=== PATIENT | male | born 1960 | race Caucasian/White ===

== ENCOUNTER 2022-01-30 02:24 | Emergency (ER) | payer OTHER, MEDICAID ==
[~2022-01-30] VITALS: Ht 175.3 cm; Wt 59.0 kg
[2022-01-30 03:23] LABS: BASOPHILS % 0.8 % (0.0-2.0); EOSINOPHILS % 2.4 % (0.0-5.0); HEMATOCRIT. 33.9 % (42.0-52.0); HEMOGLOBIN. 11.1 g/dL (14.0-18.0); MEAN CORPUSCULAR HEMOGLOBIN 30.2 pg (28.0-32.0); MEAN CORPUSCULAR VOLUME 92.6 fL (80.0-94.0); MEAN PLATELET VOLUME 7.4 fl (7.4-10.4); MONOCYTES % 9.6 % (2.0-8.0); NEUTROPHILS % 68.2 % (40.0-76.0); PLATELET 113 x1000/uL (130-400); RED BLOOD CELL COUNT 3.67 mill/uL (4.7-6.1); RED CELL DISTRIBUTION WIDTH 19.1 % (11.6-14.6)
[2022-01-30 03:26] LABS: CHLORIDE 100 mEq/L (98-107)
[2022-01-30 03:51] LABS: ETHANOL BLOOD < 10 mg/dL
[2022-01-30] MEDS ORDERED: ASPIRIN 325MG EC TABLET PO ONE (05:00)
[2022-01-30] MEDS ORDERED: DEXTROSE 50% WATER 50ML SYRINGE IV ONE (05:00)
[2022-01-30 09:00] VITALS: BP 126/85
== END 2022-01-30 14:14 | disposition short-term general hospital (02) ==
LOC: ER 02:24
DX: E87.70 Fluid overload, unspecified (principal); R77.8 Other specified abnormalities of plasma proteins; R53.83 Other fatigue; R53.1 Weakness; Z20.822 Contact with and (suspected) exposure to COVID-19; R05.9 Cough, unspecified; E11.22 Type 2 diabetes mellitus with diabetic chronic kidney disease; N18.6 End stage renal disease; I44.7 Left bundle-branch block, unspecified; Z99.2 Dependence on renal dialysis
CPT/HCPCS: 36415; 71045; 80053; 80320; 82962; 83880; 84484; 85025; 87426; 93005; 96374; 99291; C9803; G0480

== ENCOUNTER 2022-02-19 18:42 | Inpatient (IN) | payer OTHER, MEDICAID ==
[~2022-02-19] VITALS: Ht 170.2 cm; Wt 75.7 kg
[~2022-02-19 18:42] MED LIST: ETOMIDATE 2MG/ML 10ML VIAL IV ONE; SODIUM CHLORIDE 0.9% 10ML VIAL ONE; VECURONIUM BROMIDE 10 MG/VIAL IV ONE
[2022-02-19] MEDS ORDERED: SODIUM CHLORIDE 0.9% 1,000 ML IV ONE (19:00)
[2022-02-19 19:51] LABS: CHLORIDE 97 mEq/L (98-107)
[2022-02-19 20:05] LABS: HEMOGLOBIN. 8.9 g/dL (14.0-18.0); MEAN CORPUSCULAR HEMOGLOBIN 30.5 pg (28.0-32.0); MEAN CORPUSCULAR VOLUME 96.5 fL (80.0-94.0); PLATELET 293 x1000/uL (130-400); RED BLOOD CELL COUNT 2.91 mill/uL (4.7-6.1); RED CELL DISTRIBUTION WIDTH 19.2 % (11.6-14.6)
[2022-02-19] MEDS ORDERED: MIDAZOLAM HCL 2 MG/2 ML VIAL IM ONE (20:15)
[2022-02-19] MEDS ORDERED: SODIUM BICARBONATE 8.4% 1 MEQ/ML 50ML SYR IV ONE (20:15)
[2022-02-19] MEDS ORDERED: CALCIUM GLUCONATE 100MG/ML 10ML VIAL IV ONE (20:15)
[2022-02-19] MEDS ORDERED: ALBUTEROL (0.083%) 2.5MG/3ML NEB HHN ONE (20:15)
[2022-02-19] MEDS ORDERED: PIPERACILLIN/TAZ 3.375G PREMIX 50 ML IV ONE (20:15)
[2022-02-19] MEDS ORDERED: VANCOMYCIN 1G PREMIX 200 ML IV ONE (20:15)
[2022-02-19 21:29] LABS: CLARITY URINE CLEAR (CLEAR); COLOR URINE DARK YELLOW (YELLOW); KETONES URINE TRACE (NEGATIVE); LEUKOCYTE ESTERASE URINE TRACE (NEGATIVE); NITRITE URINE NEGATIVE (NEGATIVE); OCCULT BLOOD URINE TRACE (NEGATIVE); PROTEIN URINE 3+ (NEGATIVE); SPECIFIC GRAVITY URINE 1.017 (1.005-1.030)
[2022-02-19 21:48] LABS: PLATELET ESTIMATE NORMAL
[2022-02-19] MEDS ORDERED: DEXTROSE 50% WATER 50ML SYRINGE IV ONE (22:44)
[2022-02-19] MEDS ORDERED: DEXTROSE 50% WATER 50ML SYRINGE IV NR (23:00)
[2022-02-19] MEDS ORDERED: LORAZEPAM 2MG/ML CPJ IV PRN (23:00)
[2022-02-19] MEDS ORDERED: PROPOFOL 10MG/ML 100ML 100 ML IV STA (23:38)
[2022-02-20] VITALS (41 sets, daily range): BP systolic 80–156; BP diastolic 42–95
[2022-02-20 01:38] LABS: BG CARBOXYHEMOGLOBIN 0.8 % (0.5-1.5); BG DEOXYHEMOGLOBIN 7.7 % (0.0-5.0); BG FRACTION INSPIRED OXYGEN 40; BG HCO3 ACT 21.6 mmol/L (22.0-26.0); BG METHEMOGLOBIN 0.3 % (0.0-1.5); BG OXYGEN SATURATION 92.2 % (92.0-98.5); BG OXYHEMOGLOBIN 91.2 % (94.0-97.0); BG PCO2 31.8 mmHg (35.0-45.0); BG PH 7.449 (7.350-7.450); BG PO2 65.5 mmHg (75.0-100.0); BG SAMPLE SITE LEFT BRACHIAL; BG TOTAL HEMOGLOBIN 8.9 g/dL (12.0-18.0); BG VENT MODE VENT - AC
[2022-02-20] MEDS ORDERED: DEXTROSE 10% WATER 1000ML IV ONE (03:00)
[2022-02-20] MEDS ORDERED: PROPOFOL 10 MG/ML 100 ML IV ONE (03:00)
[2022-02-20] MEDS ORDERED: DEXTROSE 50% WATER 50ML SYRINGE IV NR (03:00)
[2022-02-20] MEDS ORDERED: NOREPINEPHRINE 8MG/250ML PMX 250ML IV PRN (03:00)
[2022-02-20] MEDS ORDERED: ACETAMINOPHEN 325MG TABLET PO PRN (08:15)
[2022-02-20] MEDS ORDERED: ONDANSETRON HCL 4MG/2ML INJ IV PRN (08:15)
[2022-02-20] MEDS ORDERED: PHENYLEPHRINE 50 MG in DEXT 5% WATER 245 ML IV PRN (09:00)
[2022-02-20] MEDS: PROPOFOL 10MG/ML 100ML 100 ML IV SCH ×2 (09:08→13:25)
[2022-02-20] MEDS ORDERED: DEXTROSE 10% WATER 500 ML IV ONE (10:00)
[2022-02-20] MEDS: PIPERACILLIN/TAZOBACTAM 3.375 G in DEXTROSE 5% WATER 50 ML IV SCH ×2 (11:03→21:54)
[2022-02-20] MEDS: MIDODRINE HCL 5MG TABLET PO SCH ×3 (11:27→17:32)
[2022-02-20] MEDS: PANTOPRAZOLE SODIUM 40 MG/VIAL IV SCH (11:27)
[2022-02-20] MEDS ORDERED: PROPOFOL 10MG/ML 100ML 100 ML IV PRN (12:15)
[2022-02-20] MEDS ORDERED: IPRATROPIUM/ALBUTEROL 0.5-3(2.5)MG/3ML NEB HHN PRN (12:15)
[2022-02-20] MEDS ORDERED: DEXT 10% WATER 1,000 ML IV SCH (12:45)
[2022-02-20] MEDS ORDERED: NOREPINEPHRINE 8MG/250ML PMX 250 ML IV PRN (12:45)
[2022-02-20] MEDS ORDERED: NOREPINEPHRINE 8 MG in DEXTROSE 5% WATER 250 ML IV PRN (13:00)
[2022-02-20 13:07] LABS: INR 1.3
[2022-02-20] MEDS ORDERED: DEXTROSE 50% WATER 50ML SYRINGE IV PRN (13:15)
[2022-02-20] MEDS: ENOXAPARIN 80MG/0.8ML SYR SUBCUT SCH (13:29)
[2022-02-20] MEDS ORDERED: VANCOMYCIN 500MG PREMIX 100 ML IV NR (14:30)
[2022-02-20] MEDS: IPRATROPIUM/ALBUTEROL 0.5-3(2.5)MG/3ML NEB HHN SCH ×2 (14:54→20:29)
[2022-02-20] MEDS ORDERED: HYDR2TAB4 PO (15:01)
[2022-02-20] MEDS ORDERED: GLIP5TAB12 PO (15:01)
[2022-02-20] MEDS ORDERED: MIRT-118 MT (15:01)
[2022-02-20] MEDS ORDERED: CEPH500T PO (15:01)
[2022-02-20] MEDS ORDERED: DOCU250C19 MT (15:01)
[2022-02-20] MEDS ORDERED: SENN-178 MT (15:01)
[2022-02-20] MEDS ORDERED: GABA-529 MT (15:01)
[2022-02-20] MEDS ORDERED: APIX5TAB MT (15:01)
[2022-02-20] MEDS: BLOOD SUGAR DIAGNOSTIC STRIP TEST SCH ×2 (16:00→20:00)
[2022-02-21] VITALS (54 sets, daily range): BP systolic 89–122; BP diastolic 57–96
[2022-02-21] MEDS: BLOOD SUGAR DIAGNOSTIC STRIP TEST SCH ×4 (00:38→12:00)
[2022-02-21] MEDS: IPRATROPIUM/ALBUTEROL 0.5-3(2.5)MG/3ML NEB HHN SCH ×2 (01:48→13:56)
[2022-02-21 05:20] LABS: HEMATOCRIT. 25.8 % (42.0-52.0); HEMOGLOBIN. 8.4 g/dL (14.0-18.0); MEAN CORPUSCULAR HEMOGLOBIN 30.7 pg (28.0-32.0); MEAN PLATELET VOLUME 7.5 fl (7.4-10.4); PLATELET 265 x1000/uL (130-400); RED BLOOD CELL COUNT 2.72 mill/uL (4.7-6.1); RED CELL DISTRIBUTION WIDTH 21.8 % (11.6-14.6)
[2022-02-21 08:07] LABS: BG BASE EXCESS -1.5 mmol/L (-2.0-2.0); BG CARBOXYHEMOGLOBIN 0.3 % (0.5-1.5); BG DEOXYHEMOGLOBIN 1.7 % (0.0-5.0); BG FRACTION INSPIRED OXYGEN 35; BG HCO3 ACT 21.5 mmol/L (22.0-26.0); BG METHEMOGLOBIN 0.3 % (0.0-1.5); BG OXYGEN SATURATION 98.3 % (92.0-98.5); BG OXYHEMOGLOBIN 97.7 % (94.0-97.0); BG PCO2 29.6 mmHg (35.0-45.0); BG PH 7.478 (7.350-7.450); BG PO2 110.9 mmHg (75.0-100.0); BG SAMPLE SITE RIGHT BRACHIAL; BG TOTAL HEMOGLOBIN 8.9 g/dL (12.0-18.0); BG VENT MODE VENT - AC
[2022-02-21] MEDS ORDERED: DEXT 5%/0.9% NACL 1,000 ML IV SCH (09:45)
[2022-02-21] MEDS: PANTOPRAZOLE SODIUM 40 MG/VIAL IV SCH (10:17)
[2022-02-21] MEDS: MIDODRINE HCL 5MG TABLET PO SCH ×3 (10:18→16:58)
[2022-02-21] MEDS: PIPERACILLIN/TAZOBACTAM 3.375 G in DEXTROSE 5% WATER 50 ML IV SCH (12:08)
[2022-02-21] MEDS: PROPOFOL 10MG/ML 100ML 100 ML IV SCH (12:10)
[2022-02-21] MEDS: ENOXAPARIN 80MG/0.8ML SYR SUBCUT SCH (12:35)
[2022-02-21 13:46] LABS: HEPATITIS B SURFACE ANTIGEN NEGATIVE
[2022-02-21 16:40] LABS: PLATELET ESTIMATE NORMAL
[2022-02-21] MEDS ORDERED: VANCOMYCIN 500MG PREMIX 100 ML IV NR (21:00)
[2022-02-21] MEDS ORDERED: EPOETIN ALFA 10000UNITS/ML VIAL SUBCUT SCH (21:00)
== END 2022-02-21 19:43 | disposition short-term general hospital (02) | DRG 871 ==
LOC: ER 18:42 → MICUSO 21:03 → EDBEDREQ 21:18 → EDBEDREQTM 21:18 → CVICU 02-20 08:27
PROVIDERS: ADMIT Internal Medicine; ATTEND Internal Medicine
PROC: 0BH17EZ Insertion of Endotracheal Airway into Trachea, Via Natural or Artificial Opening (ICD-10-PCS; principal; 2022-02-19)
PROC: 5A1945Z Respiratory Ventilation, 24-96 Consecutive Hours (ICD-10-PCS; 2022-02-19)
PROC: 06HY33Z Insertion of Infusion Device into Lower Vein, Percutaneous Approach (ICD-10-PCS; 2022-02-19)
PROC: B54BZZA Ultrasonography of Right Lower Extremity Veins, Guidance (ICD-10-PCS; 2022-02-19)
PROC: 5A1D70Z Performance of Urinary Filtration, Intermittent, Less than 6 Hours Per Day (ICD-10-PCS; 2022-02-21)
DX: A41.9 Sepsis, unspecified organism (principal); E43 Unspecified severe protein-calorie malnutrition; G92.8 Other toxic encephalopathy; N18.6 End stage renal disease; R65.21 Severe sepsis with septic shock; J18.9 Pneumonia, unspecified organism; J96.01 Acute respiratory failure with hypoxia; I21.4 Non-ST elevation (NSTEMI) myocardial infarction; E87.1 Hypo-osmolality and hyponatremia; I48.92 Unspecified atrial flutter; I12.0 Hypertensive chronic kidney disease with stage 5 chronic kidney disease or end stage renal disease; D64.9 Anemia, unspecified; E87.5 Hyperkalemia; E87.8 Other disorders of electrolyte and fluid balance, not elsewhere classified; E11.649 Type 2 diabetes mellitus with hypoglycemia without coma; E11.51 Type 2 diabetes mellitus with diabetic peripheral angiopathy without gangrene; E11.22 Type 2 diabetes mellitus with diabetic chronic kidney disease; E78.5 Hyperlipidemia, unspecified; L89.156 Pressure-induced deep tissue damage of sacral region; I25.10 Atherosclerotic heart disease of native coronary artery without angina pectoris; Z20.822 Contact with and (suspected) exposure to COVID-19; Y95 Nosocomial condition; I48.91 Unspecified atrial fibrillation; Z99.2 Dependence on renal dialysis; Z95.1 Presence of aortocoronary bypass graft; Z89.511 Acquired absence of right leg below knee; Z82.49 Family history of ischemic heart disease and other diseases of the circulatory system; Z83.3 Family history of diabetes mellitus; Z78.1 Physical restraint status; Z68.26 Body mass index [BMI] 26.0-26.9, adult
CPT/HCPCS: 36415; 36600; 71045; 80048; 80053; 81003; 82375; 82805; 82962; 83036; 83605; 84145; 84478; 84484; 85025; 86705; 86709; 86803; 87070; 87340; 87426; 93005; 93306; 94002; 94003; 94640; 94644; 99291; C9113; J0610; J0885; J1650; J2060; J2250; J2543; J2704; J3370; J3490; J7030; J7042; J7060

== ENCOUNTER 2022-03-25 15:52 | Emergency (ER) | payer MEDICAID, OTHER ==
[~2022-03-25] VITALS: Ht 172.7 cm; Wt 79.0 kg
[~2022-03-25 15:52] MED LIST changes: +APIX5TAB MT; +CEPH500T PO; +DOCU250C19 MT; -ETOMIDATE 2MG/ML 10ML VIAL IV ONE; +GABA-529 MT; +GLIP5TAB12 PO; +HYDR2TAB4 PO; +MIRT-118 MT; +SENN-178 MT; -SODIUM CHLORIDE 0.9% 10ML VIAL ONE; -VECURONIUM BROMIDE 10 MG/VIAL IV ONE
[2022-03-25 16:51] LABS: EOSINOPHILS % 4.4 % (0.0-5.0); HEMATOCRIT. 31.7 % (42.0-52.0); HEMOGLOBIN. 9.7 g/dL (14.0-18.0); LYMPHOCYTES % 11.3 % (20.0-50.0); MEAN CORPUSCULAR HEMOGLOBIN 32.1 pg (28.0-32.0); MEAN CORPUSCULAR VOLUME 104.6 fL (80.0-94.0); MEAN PLATELET VOLUME 8.8 fl (7.4-10.4); NEUTROPHILS % 73.3 % (40.0-76.0); PLATELET 109 x1000/uL (130-400); RED BLOOD CELL COUNT 3.03 mill/uL (4.7-6.1); RED CELL DISTRIBUTION WIDTH 21.4 % (11.6-14.6)
[2022-03-25 16:56] LABS: CHLORIDE 103 mEq/L (98-107)
[2022-03-25] MEDS ORDERED: DEXTROSE 50% WATER 50ML SYRINGE IV ONE (18:00)
[2022-03-25] MEDS ORDERED: CEFTRIAXONE 1 G PREMIX 50 ML IV NR (18:00)
[2022-03-25] MEDS ORDERED: AZITHROMYCIN 500MG/250ML 250 ML IV NR (18:00)
[2022-03-25] MEDS ORDERED: FUROSEMIDE 20MG/2ML VIAL IVP ONE (18:30)
[2022-03-25 22:00] VITALS: BP 114/66
== END 2022-03-26 01:31 | disposition short-term general hospital (02) ==
LOC: ER 15:52
DX: R60.1 Generalized edema (principal); J18.9 Pneumonia, unspecified organism; E11.22 Type 2 diabetes mellitus with diabetic chronic kidney disease; I12.9 Hypertensive chronic kidney disease with stage 1 through stage 4 chronic kidney disease, or unspecified chronic kidney disease; N18.9 Chronic kidney disease, unspecified; R77.8 Other specified abnormalities of plasma proteins; R51.9 Headache, unspecified; Z98.890 Other specified postprocedural states
CPT/HCPCS: 36415; 70450; 71045; 80053; 82962; 83605; 84484; 85025; 87040; 93005; 96365; 96367; 96375; 99291; J0456; J0696; J1940

== ENCOUNTER 2022-05-03 09:03 | Inpatient (IN) | payer OTHER, MEDICAID ==
[~2022-05-03] VITALS: Ht 165.1 cm; Wt 59.9 kg
[~2022-05-03 09:03] MED LIST changes: +DEXTROSE 50% WATER 50ML SYRINGE IV ONE
[2022-05-03] MEDS ORDERED: DEXTROSE 50% WATER 50ML SYRINGE IV ONE (09:15)
[2022-05-03] MEDS ORDERED: SODIUM CHLORIDE 0.9% 1000ML BAG (SEPSIS BOLUS) IV ONE (09:30)
[2022-05-03 10:34] LABS: CHLORIDE 100 mEq/L (98-107); HEMATOCRIT. 31.8 % (42.0-52.0); HEMOGLOBIN. 9.7 g/dL (14.0-18.0); MEAN CORPUSCULAR VOLUME 98.2 fL (80.0-94.0); MEAN PLATELET VOLUME 8.3 fl (7.4-10.4); PLATELET 175 x1000/uL (130-400); RED BLOOD CELL COUNT 3.23 mill/uL (4.7-6.1); RED CELL DISTRIBUTION WIDTH 18.2 % (11.6-14.6)
[2022-05-03 10:35] LABS: INR 1.6; PROTHROMBIN TIME 16.1 sec (9.6-11.0)
[2022-05-03] MEDS ORDERED: PIPERACILLIN/TAZ 3.375G PREMIX 50 ML IV ONE (11:45)
[2022-05-03] MEDS ORDERED: VANCOMYCIN 1G PREMIX 200 ML IV ONE (11:45)
[2022-05-03 14:29] LABS: PLATELET ESTIMATE NORMAL
[2022-05-03] MEDS ORDERED: CEFEPIME 1,000 MG in DEXTROSE 5% WATER 50 ML IV SCH (15:00)
[2022-05-03] MEDS ORDERED: IPRATROPIUM/ALBUTEROL 0.5-3(2.5)MG/3ML NEB NEB PRN (17:15)
[2022-05-03] MEDS ORDERED: ACETAMINOPHEN 325MG TABLET PO PRN ×2 (17:15)
[2022-05-03] MEDS ORDERED: GUAIFENESIN 200MG/10ML SUGAR FREE UDC PO PRN (17:15)
[2022-05-03] MEDS ORDERED: ONDANSETRON HCL 4MG/2ML INJ IV PRN (17:15)
[2022-05-03] MEDS ORDERED: CLONIDINE 0.1MG TABLET PO PRN (17:15)
[2022-05-03] MEDS ORDERED: MAGNESIUM/ALUMINUM HYDROXIDE/SIMETHICONE 30ML UDC PO PRN (17:15)
[2022-05-03] MEDS ORDERED: NALOXONE HCL 0.4MG/ML VIAL IV PRN (17:30)
[2022-05-03] MEDS: ENOXAPARIN 30MG/0.3ML SYR SUBCUT SCH (18:22)
[2022-05-03] MEDS: HYDROCODONE/ACETAMINOPHEN 5/325MG TABLET PO PRN (22:16)
[2022-05-04] MEDS ORDERED: DEXT 10% WATER 1,000 ML IV ONE (04:15)
[2022-05-04] MEDS ORDERED: DEXTROSE 50% WATER 50ML SYRINGE IV NR (04:15)
[2022-05-04 06:13] VITALS: BP 95/56
[2022-05-04 07:30] LABS: HEMATOCRIT. 29.6 % (42.0-52.0); HEMOGLOBIN. 9.2 g/dL (14.0-18.0); MEAN CORPUSCULAR HEMOGLOBIN 30.1 pg (28.0-32.0); MEAN CORPUSCULAR VOLUME 97.2 fL (80.0-94.0); MEAN PLATELET VOLUME 8.8 fl (7.4-10.4); PLATELET 191 x1000/uL (130-400); RED BLOOD CELL COUNT 3.04 mill/uL (4.7-6.1); RED CELL DISTRIBUTION WIDTH 18.3 % (11.6-14.6)
[2022-05-04 08:00] VITALS: BP 101/64
[2022-05-04 08:11] LABS: PHOSPHORUS 4.8 mg/dL (2.5-4.9); T4 FREE 1.1 ng/dL (0.76-1.46)
[2022-05-04 08:24] LABS: VITAMIN B12 SERUM 1258 pg/mL (211-911)
[2022-05-04 08:48] LABS: FOLIC ACID (FOLATE) SERUM > 20.00 ng/mL (>5.38)
[2022-05-04] MEDS: HYDROCODONE/ACETAMINOPHEN 5/325MG TABLET PO PRN ×2 (10:33→18:02)
[2022-05-04 12:00] VITALS: BP 99/53
[2022-05-04 14:45] LABS: HEPATITIS B SURFACE ANTIGEN NEGATIVE
[2022-05-04 16:00] VITALS: BP 120/71
[2022-05-04] MEDS: CEFEPIME 1,000 MG in DEXTROSE 5% WATER 50 ML IV SCH ×2 (18:06→19:47)
[2022-05-04] MEDS: ENOXAPARIN 30MG/0.3ML SYR SUBCUT SCH (18:19)
[2022-05-04 18:26] LABS: PLATELET ESTIMATE NORMAL
[2022-05-04 18:55] LABS: CREATINE KINASE MB FRACTION 3.3 ng/mL (0.5-3.6)
[2022-05-04 20:00] VITALS: BP 89/38
[2022-05-04] MEDS: EPOETIN ALFA-EPBX 4,000 UNIT/ML VIAL SUBCUT SCH (21:01)
[2022-05-05] VITALS (7 sets, daily range): BP systolic 68–146; BP diastolic 32–47
[2022-05-05 07:30] LABS: HEMATOCRIT. 27.6 % (42.0-52.0); HEMOGLOBIN. 8.4 g/dL (14.0-18.0); MEAN CORPUSCULAR HEMOGLOBIN 29.7 pg (28.0-32.0); MEAN CORPUSCULAR VOLUME 97.7 fL (80.0-94.0); MEAN PLATELET VOLUME 8.6 fl (7.4-10.4); PLATELET 135 x1000/uL (130-400); RED BLOOD CELL COUNT 2.82 mill/uL (4.7-6.1); RED CELL DISTRIBUTION WIDTH 18.7 % (11.6-14.6)
[2022-05-05] MEDS: BLOOD SUGAR DIAGNOSTIC STRIP TEST SCH ×4 (07:40→20:14)
[2022-05-05] MEDS ORDERED: DEXT 10% WATER 1,000 ML IV SCH (08:00)
[2022-05-05] MEDS: APIXABAN 2.5 MG TABLET PO SCH ×2 (08:53→17:20)
[2022-05-05] MEDS ORDERED: DEXTROSE 50% WATER 50ML SYRINGE IV PRN (09:45)
[2022-05-05 10:27] LABS: PLATELET ESTIMATE NORMAL
[2022-05-05] MEDS: INSULIN LISPRO 100 UNITS/ML SUBCUT SCH ×3 (11:42→20:14)
[2022-05-05] MEDS: HYDROCODONE/ACETAMINOPHEN 5/325MG TABLET PO PRN (11:46)
[2022-05-05] MEDS ORDERED: MIDODRINE HCL 5MG TABLET PO SCH (12:00)
[2022-05-05] MEDS: MIDODRINE HCL 5MG TABLET PO SCH ×3 (12:22→22:00)
[2022-05-05] MEDS ORDERED: BLOOD SUGAR DIAGNOSTIC STRIP TEST SCH (12:40)
[2022-05-05] MEDS ORDERED: SODIUM CHLORIDE 0.9% 250 ML IV ONE (14:45)
[2022-05-05] MEDS: MEROPENEM 500 MG in SODIUM CHLORIDE 0.9% 50 ML IV SCH (17:20)
[2022-05-06] VITALS: BP 95/44
[2022-05-06 04:00] VITALS: BP 96/44
[2022-05-06] MEDS: MIDODRINE HCL 5MG TABLET PO SCH ×3 (06:04→20:55)
[2022-05-06] MEDS: BLOOD SUGAR DIAGNOSTIC STRIP TEST SCH ×4 (06:48→20:55)
[2022-05-06 06:51] LABS: HEMATOCRIT. 30.6 % (42.0-52.0); HEMOGLOBIN. 9.5 g/dL (14.0-18.0); MEAN CORPUSCULAR HEMOGLOBIN 29.5 pg (28.0-32.0); MEAN CORPUSCULAR VOLUME 95.7 fL (80.0-94.0); MEAN PLATELET VOLUME 8.5 fl (7.4-10.4); PLATELET 128 x1000/uL (130-400); RED CELL DISTRIBUTION WIDTH 18.3 % (11.6-14.6)
[2022-05-06 07:15] LABS: PHOSPHORUS 3.2 mg/dL (2.5-4.9)
[2022-05-06 08:00] VITALS: BP 87/13
[2022-05-06] MEDS: INSULIN LISPRO 100 UNITS/ML SUBCUT SCH ×4 (08:10→20:55)
[2022-05-06] MEDS: APIXABAN 2.5 MG TABLET PO SCH ×2 (08:25→16:28)
[2022-05-06] MEDS: HYDROCODONE/ACETAMINOPHEN 5/325MG TABLET PO PRN (11:32)
[2022-05-06 12:00] VITALS: BP 88/32
[2022-05-06 12:44] LABS: PLATELET ESTIMATE SLIGHTLY DECREASED
[2022-05-06 16:00] VITALS: BP 82/42
[2022-05-06] MEDS ORDERED: ATOR40TA70 PO (16:50)
[2022-05-06] MEDS ORDERED: OMEP20CA14 PO (16:50)
[2022-05-06] MEDS ORDERED: FURO80TA3 PO (16:50)
[2022-05-06] MEDS: MEROPENEM 500 MG in SODIUM CHLORIDE 0.9% 50 ML IV SCH (17:16)
[2022-05-06 20:00] VITALS: BP 94/49
[2022-05-06] MEDS: EPOETIN ALFA-EPBX 4,000 UNIT/ML VIAL SUBCUT SCH (20:56)
[2022-05-07] VITALS (8 sets, daily range): BP systolic 82–99; BP diastolic 24–49
[2022-05-07] MEDS ORDERED: SODIUM CHLORIDE 0.9% 250 ML IV ONE ×2 (00:15→00:45)
[2022-05-07] MEDS: BLOOD SUGAR DIAGNOSTIC STRIP TEST SCH ×4 (05:29→21:00)
[2022-05-07] MEDS: DEXTROSE 50% WATER 50ML SYRINGE IV PRN ×2 (05:29→11:35)
[2022-05-07] MEDS: MIDODRINE HCL 5MG TABLET PO SCH ×3 (05:29→22:00)
[2022-05-07] MEDS: INSULIN LISPRO 100 UNITS/ML SUBCUT SCH ×4 (05:29→21:00)
[2022-05-07] MEDS: HYDROCODONE/ACETAMINOPHEN 5/325MG TABLET PO PRN ×2 (06:45→13:42)
[2022-05-07] MEDS: APIXABAN 2.5 MG TABLET PO SCH ×2 (07:58→16:30)
[2022-05-07] MEDS: DEXT 10% WATER 1,000 ML IV SCH (12:45)
[2022-05-07] MEDS ORDERED: MIDODRINE HCL 5MG TABLET PO NR (14:30)
[2022-05-07 16:23] LABS: HEMATOCRIT. 29.6 % (42.0-52.0); HEMOGLOBIN. 9.1 g/dL (14.0-18.0); MEAN CORPUSCULAR HEMOGLOBIN 29.4 pg (28.0-32.0); MEAN CORPUSCULAR VOLUME 95.3 fL (80.0-94.0); MEAN PLATELET VOLUME 8.2 fl (7.4-10.4); PLATELET 107 x1000/uL (130-400); RED CELL DISTRIBUTION WIDTH 18.7 % (11.6-14.6)
[2022-05-07] MEDS: MEROPENEM 500 MG in SODIUM CHLORIDE 0.9% 50 ML IV SCH (17:02)
[2022-05-07 17:21] LABS: PHOSPHORUS 2.8 mg/dL (2.5-4.9)
[2022-05-07 19:07] LABS: PLATELET ESTIMATE DECREASED
[2022-05-08] VITALS: BP 98/54
[2022-05-08 04:00] VITALS: BP 90/44
[2022-05-08] MEDS: MIDODRINE HCL 5MG TABLET PO SCH ×4 (04:51→21:30)
[2022-05-08] MEDS ORDERED: LIDOCAINE HCL 1%/EPI 1:200,000 30 ML VIAL IJ NR (06:30)
[2022-05-08] MEDS ORDERED: SILVER NITRATE APPLICATOR STICK TOP NR (06:30)
[2022-05-08 07:32] LABS: HEMATOCRIT. 31.9 % (42.0-52.0); MEAN CORPUSCULAR HEMOGLOBIN 29.4 pg (28.0-32.0); MEAN CORPUSCULAR VOLUME 103.9 fL (80.0-94.0); MEAN PLATELET VOLUME 8.3 fl (7.4-10.4); PLATELET 88 x1000/uL (130-400); RED BLOOD CELL COUNT 3.07 mill/uL (4.7-6.1); RED CELL DISTRIBUTION WIDTH 19.8 % (11.6-14.6)
[2022-05-08] MEDS: INSULIN LISPRO 100 UNITS/ML SUBCUT SCH ×4 (07:47→20:57)
[2022-05-08] MEDS: BLOOD SUGAR DIAGNOSTIC STRIP TEST SCH ×4 (07:47→20:57)
[2022-05-08 08:00] VITALS: BP 120/77
[2022-05-08 08:18] LABS: PHOSPHORUS 3.1 mg/dL (2.5-4.9)
[2022-05-08] MEDS: APIXABAN 2.5 MG TABLET PO SCH (09:27)
[2022-05-08] MEDS ORDERED: MORPHINE SULFATE 2 MG/ML CPJ (NOT FOR IM USE) IV PRN (10:15)
[2022-05-08 11:23] LABS: PLATELET ESTIMATE DECREASED
[2022-05-08 12:00] VITALS: BP 100/68
[2022-05-08] MEDS ORDERED: POTASSIUM CHLORIDE 20MEQ TABLET SR PO SCH (12:45)
[2022-05-08] MEDS: DEXTROSE 50% WATER 50ML SYRINGE IV PRN ×2 (12:46→20:49)
[2022-05-08] MEDS: DEXT 10% WATER 1,000 ML IV SCH (13:00)
[2022-05-08] MEDS ORDERED: KCL 20MEQ/100ML PREMIX 100 ML IV NR ×2 (14:00→17:00)
[2022-05-08 16:00] VITALS: BP 111/75
[2022-05-08] MEDS: MEROPENEM 500 MG in SODIUM CHLORIDE 0.9% 50 ML IV SCH (17:45)
[2022-05-08] MEDS ORDERED: VANCOMYCIN 500MG PREMIX 100 ML IV NR ×2 (18:00→20:00)
[2022-05-08 20:00] VITALS: BP 81/44
[2022-05-08] MEDS ORDERED: ENOXAPARIN 30MG/0.3ML SYR SUBCUT SCH (21:00)
[2022-05-09] VITALS: BP 83/37
[2022-05-09 04:00] VITALS: BP 71/34
[2022-05-09] MEDS: DEXTROSE 50% WATER 50ML SYRINGE IV PRN (05:22)
[2022-05-09] MEDS: MIDODRINE HCL 5MG TABLET PO SCH (05:46)
[2022-05-09] MEDS: BLOOD SUGAR DIAGNOSTIC STRIP TEST SCH (05:48)
[2022-05-09] MEDS: INSULIN LISPRO 100 UNITS/ML SUBCUT SCH (05:49)
[2022-05-09 06:29] LABS: BASOPHILS % 0.3 % (0.0-2.0); EOSINOPHILS % 0.5 % (0.0-5.0); HEMATOCRIT. 29.2 % (42.0-52.0); HEMOGLOBIN. 9.1 g/dL (14.0-18.0); LYMPHOCYTES % 8.8 % (20.0-50.0); MEAN CORPUSCULAR HEMOGLOBIN 29.3 pg (28.0-32.0); MEAN CORPUSCULAR VOLUME 94.2 fL (80.0-94.0); MEAN PLATELET VOLUME 8.7 fl (7.4-10.4); MONOCYTES % 6.9 % (2.0-8.0); NEUTROPHILS % 83.5 % (40.0-76.0); PLATELET 77 x1000/uL (130-400); RED CELL DISTRIBUTION WIDTH 18.7 % (11.6-14.6)
== END 2022-05-09 05:54 | DRG 853 ==
LOC: ER 09:03 → EDBEDREQ 09:27 → MICUSO 13:42 → EDBEDREQ 13:46 → EDBEDREQSVC 13:46 → SUPCPDRO 14:06 → 7WST 05-04 05:25
PROVIDERS: ADMIT Internal Medicine; ATTEND Internal Medicine
PROC: 5A1D70Z Performance of Urinary Filtration, Intermittent, Less than 6 Hours Per Day (ICD-10-PCS; 2022-05-04)
PROC: 5A1D70Z Performance of Urinary Filtration, Intermittent, Less than 6 Hours Per Day (ICD-10-PCS; 2022-05-06)
PROC: 0KBN0ZZ Excision of Right Hip Muscle, Open Approach (ICD-10-PCS; principal; 2022-05-08)
PROC: 0KBP0ZZ Excision of Left Hip Muscle, Open Approach (ICD-10-PCS; 2022-05-08)
PROC: 5A1D70Z Performance of Urinary Filtration, Intermittent, Less than 6 Hours Per Day (ICD-10-PCS; 2022-05-08)
DX: A41.9 Sepsis, unspecified organism (principal); E43 Unspecified severe protein-calorie malnutrition; L89.154 Pressure ulcer of sacral region, stage 4; I21.4 Non-ST elevation (NSTEMI) myocardial infarction; J18.9 Pneumonia, unspecified organism; J96.01 Acute respiratory failure with hypoxia; N18.6 End stage renal disease; I48.92 Unspecified atrial flutter; I12.0 Hypertensive chronic kidney disease with stage 5 chronic kidney disease or end stage renal disease; E87.2 Acidosis; G93.40 Encephalopathy, unspecified; E11.51 Type 2 diabetes mellitus with diabetic peripheral angiopathy without gangrene; I48.91 Unspecified atrial fibrillation; I25.10 Atherosclerotic heart disease of native coronary artery without angina pectoris; E78.5 Hyperlipidemia, unspecified; E11.649 Type 2 diabetes mellitus with hypoglycemia without coma; D63.1 Anemia in chronic kidney disease; D69.6 Thrombocytopenia, unspecified; E11.22 Type 2 diabetes mellitus with diabetic chronic kidney disease; Z68.22 Body mass index [BMI] 22.0-22.9, adult; Z95.1 Presence of aortocoronary bypass graft; Z66 Do not resuscitate; Z99.2 Dependence on renal dialysis; Z89.511 Acquired absence of right leg below knee; Z79.01 Long term (current) use of anticoagulants; Z82.49 Family history of ischemic heart disease and other diseases of the circulatory system; Z83.3 Family history of diabetes mellitus; Z89.611 Acquired absence of right leg above knee; Z79.84 Long term (current) use of oral hypoglycemic drugs; Z79.899 Other long term (current) drug therapy; Z20.822 Contact with and (suspected) exposure to COVID-19
CPT/HCPCS: 36415; 71045; 80048; 80053; 80202; 82550; 82553; 82607; 82746; 82962; 83036; 83605; 83735; 84100; 84145; 84439; 84443; 84484; 85025; 86705; 86709; 86803; 87015; 87045; 87340; 87426; 87427; 87449; 87493; 93005; 93306; 97162; 97166; 99291; A6261; C1893; J0692; J0885; J1650; J2185; J2543; J3370; J3480; J7030; J7060